=== PATIENT | female | born 1990 | race Caucasian/White ===

== ENCOUNTER → 2020-12-09 14:02 | Outpatient (BNVA) | payer MEDICAID, SELFPAY | PROVIDERS: Family Provider Family Medicine; PCP Family Medicine; Visit Provider Obstetrics & Gynecology | DX: Z30.09 Encounter for other general counseling and advice on contraception (principal) | CPT/HCPCS: 81025 ==

== ENCOUNTER → 2023-12-30 14:25 | Outpatient (BNVA) | payer MEDICAID, SELFPAY | PROVIDERS: Family Provider Family Medicine; PCP Family Medicine; Visit Provider Nurse Practitioner Women's Health | DX: Z30.46 Encounter for surveillance of implantable subdermal contraceptive (principal) | CPT/HCPCS: 81025 ==

== ENCOUNTER → 2025-04-02 15:23 | Outpatient (BNVA) | payer MEDICAID, SELFPAY | PROVIDERS: Family Provider Family Medicine; PCP Family Medicine; Visit Provider Nurse Practitioner Women's Health | DX: Z11.3 Encounter for screening for infections with a predominantly sexual mode of transmission (principal); Z12.4 Encounter for screening for malignant neoplasm of cervix | CPT/HCPCS: 86592; 86705; 86706; 86709; 86803; 87340; 87491; 87591; 87624; 87661; 87806 ==

== ENCOUNTER 2025-07-23 08:03 | Outpatient (CLI) | payer MEDICAID, SELFPAY ==
[2025-07-23 08:52] LABS: Anion Gap 16.7 (5-19); Blood Urea Nitrogen 20 mg/dL (6-20); Calcium 9.1 mg/dL (8.5-10.5); Carbon Dioxide 19 mmol/L (22-29); Chloride 109 mmol/L (98-107); Glucose 109 mg/dL (65-115); Osmolality Calculated 293 mOsm/kg (285-295); Potassium 4.7 mmol/L (3.5-5.1); Sodium 140 mmol/L (136-145)
== END 2025-07-23 08:04 | disposition home or self-care (01) ==
LOC: LAB 08:05
PROVIDERS: Family Provider Family Medicine; PCP Family Medicine; Visit Provider Internal Medicine
DX: N18.30 Chronic kidney disease, stage 3 unspecified (principal)
CPT/HCPCS: 36415; 80048

== ENCOUNTER 2025-10-23 14:36 | Outpatient (CLI) | payer MEDICAID, SELFPAY ==
[2025-10-23 15:17] LABS: Glucose Urine UA Negative (Normal); Nitrate Urine Negative (Negative); Specific Gravity, Urine 1.006 (1.005-1.030)
[2025-10-23 15:47] LABS: Creatinine Urine, Random 53 mg/dL (28-217)
[2025-10-23 15:51] LABS: Microalbum Creatinine Ratio Ur 264 mg/dL (0-20)
== END 2025-10-23 14:37 | disposition home or self-care (01) ==
LOC: LAB 14:40
PROVIDERS: PCP Nurse Practitioner Family; Visit Provider Internal Medicine Nephrology
DX: N18.32 Chronic kidney disease, stage 3b (principal)
CPT/HCPCS: 81001; 82044